=== PATIENT | male | born 1970 ===

== ENCOUNTER 2020-02-15 19:38 | Emergency (ER) | payer MEDICARE, MEDICAID ==
--- NOTE | 2020-02-15 20:09 | EDM.PDOC ---
ED HPI GENERAL MEDICAL PROBLEM - General Chief Complaint: Upper Extremity Injury/Pain Stated Complaint: SHOULDER Time Seen by Provider: 02/15/20 19:55 Source of Information: Reports: RN Notes Reviewed, Other (Caregiver) History Limitations: Reports: Physical Impairment - History of Present Illness INITIAL COMMENTS - FREE TEXT/NARRATIVE: Brought in by caregiver from care home Staff indicates when he was being turned in bed, they heard a "pop" Then when pt was laid down , they thought one shoulder seem deformed compared to the other pt is non verbal and difficult to explain Onset: Today Onset Date: 02/15/20 Duration: Constant Location: Reports: Upper Extremity, Right Improves with: Reports: None, Other Worsens with: Reports: None Context: Reports: Lifting Associated Symptoms: Reports: No Other Symptoms - Related Data Allergies Allergy/AdvReac Type Severity Reaction Status Date / Time No Known Allergies Allergy Verified 02/15/20 19:56 Home Meds: Home Meds Acetaminophen [Mapap] 15 ml PO Q6HR PRN #180 ml 02/15/20 [Rx] Albuterol [Ventolin HFA] 1 puff .XX QID 02/15/20 [History] Benzoyl Peroxide [[employer] Acne Treatment] 28 gm TP DAILY 02/15/20 [History] Docusate Sodium/Sennosides [Senna Plus] 1 each PO BID 02/15/20 [History] Famotidine 20 mg PO DAILY 02/15/20 [History] Folic Acid 1 mg PO DAILY 02/15/20 [History] LORazepam [Lorazepam] 2 mg IJ ASDIRECTED PRN 02/15/20 [History] Lansoprazole [Prevacid] 30 mg PO DAILY 02/15/20 [History] Metoclopramide [Reglan] 10 mg PO DAILY 02/15/20 [History] Multivits w-Min/Ferrous Gluc [Cerovite Liquid] 9 mg PO DAILY 02/15/20 [History] carBAMazepine [Carbamazepine] 100 mg PO DAILY 02/15/20 [History] Review of Systems - Review of Systems Review Of Systems: Unable To Obtain Reason Not Obtained: non verbal ED EXAM, GENERAL - Physical Exam Exam: See Below Exam Limited By: Physical Impairment General Appearance: Alert Eye Exam: Bilateral Eye: Abnormal EOM, EOMI Extremities: Limited Range of Motion, Other (right shoulder joint seems more prominent than the lef ) Neurological: Alert (staff , pt not able to freely extend the arm) Course - Vital Signs Last Recorded V/S: Last Vital Signs Temp 36.1 C 02/15/20 19:38 Pulse 76 02/15/20 19:38 Resp 20 02/15/20 19:38 BP 134/98 H 02/15/20 19:38 Pulse Ox 94 L 02/15/20 19:38 - Orders/Labs/Meds Orders: Active Orders 24 hr Category Date Time Status Shoulder Comp Rt [CR] Stat Exams 02/15/20 19:56 Taken - Re-Assessments/Exams Free Text/Narrative Re-Assessment/Exam: 02/15/20 22:06 initial XRay done was not conclusive 2nd xray of the right shoulder did not show any fracture or dislocation Departure - Departure Time of Disposition: 22:25 Disposition: Home, Self-Care 01 Condition: Fair Clinical Impression: Right shoulder injury, Sprain of right shoulder joint - Discharge Information *PRESCRIPTION DRUG MONITORING PROGRAM REVIEWED*: Not Applicable *COPY OF PRESCRIPTION DRUG MONITORING REPORT IN PATIENT CAT: Not Applicable Prescriptions: Acetaminophen [Mapap] 15 ml PO Q6HR PRN #180 ml PRN Reason: Pain (Moderate 4-6) Instructions: Shoulder Sprain Referrals: PCP,None [Primary Care Provider] - Forms: ED Department Discharge Additional Instructions: Tylenol as needed for pain Rest right upper extremity: use cold compress on the area 3 times day and keep for 15 mins Follow up with PCP as needed Sepsis Event Note (ED) - Focused Exam Vital Signs: Vital Signs Temp Pulse Resp BP Pulse Ox 02/15/20 19:38 36.1 C 76 20 134/98 H 94 L - My Orders Last 24 Hours: My Active Orders 02/15/20 19:56 Shoulder Comp Rt [CR] Stat - Assessment/Plan Last 24 Hours: My Active Orders 02/15/20 19:56 Shoulder Comp Rt [CR] Stat
== END 2020-02-15 22:30 | disposition home or self-care (01) ==
LOC: FB.ED 19:38
DX: S43.401A Unspecified sprain of right shoulder joint, initial encounter (principal); Z79.899 Other long term (current) drug therapy; X58.XXXA Exposure to other specified factors, initial encounter
CPT/HCPCS: 73030-RT; 99282; 99283